=== PATIENT | male | born 1950 | race Caucasian/White ===

== ENCOUNTER 2016-11-24 11:32 | Emergency (ER) | payer OTHER ==
--- NOTE | 2016-11-24 11:58 | EDPHY ---
H & P Stated Complaint: back spasm Time Seen by Provider: 11/24/16 11:45 HPI/ROS: CHIEF COMPLAINT: Back pain and spasm HISTORY OF PRESENT ILLNESS: The patient is a 66 y/o male arriving with his complaining of worsening back spasms and pain onset Saturday, 4 days ago. He has a history of discectomies at C5-C6 and C6-C7 and some mild chronic low back pain. This past Saturday he was stretching after running and noticed stiffness in his lower back. This slowly became more painful with a stronger spasm throughout the week. He has been treating his symptoms with heat, ice, and ibuprofen and noticed improvement by this morning. He felt good enough to walk and was feeling better until he sneezed while sitting in a chair. He immediately "felt like someone shot me" in the center of his low back. Pain is severe and worsened with any movement. He denies radiculopathy, weakness, numbness, or incontinence. He took ibuprofen at 10:00 this morning and received 200mcg IV Fentanyl by EMS en route. REVIEW OF SYSTEMS: Constitutional: No fever, no chills Eyes: No visual changes ENT: No sore throat Respiratory: No cough, no shortness of breath Cardiac: No chest pain Gastrointestinal: No nausea, no vomiting, no abdominal pain Genitourinary: No hematuria, no dysuria Musculoskeletal:see HPI Skin: No rash Neurological: No headache, no numbness, no weakness Psychiatric: No depression Source: Patient - Personal History Current Tetanus Diphtheria and Acellular Pertussis (TDAP): Yes - Medical/Surgical History PMH: PMH includes: 1. Prostate cancer 2. Discectomies at C5-C6 and C6-C7 Hx Asthma: No Hx Chronic Respiratory Disease: No Hx Diabetes: No Hx Cardiac Disease: No Hx Renal Disease: No Hx Cirrhosis: No Hx Alcoholism: No Hx HIV/AIDS: No Hx Splenectomy or Spleen Trauma: No Other PMH: PAC'S AND PVC'S, PROSTATE CANCER, RADICAL PROSTATECTOMY, DOUBLE DISK REPLACEMENT (C5/6 AND 6/7). ENDARTERECTOMY. - Social History Smoking Status: Former smoker Additional Social History: at bedside. - Physical Exam Exam: General Appearance: Alert, appears uncomfortable with any movement Eyes: Pupils equal and round, no conjunctival pallor ENT, Mouth: Mucous membranes moist Neck: Normal inspection Respiratory: Lungs are clear to auscultation Cardiovascular: Regular rate and rhythm Gastrointestinal: Abdomen is soft and non-tender Back: left lumbar paraspinous tenderness Neurological: Alert, oriented x3, cranial nerves II through XII intact, motor 5 /5, including dorsiflexion of the ankle and 1st toe, sensory intact to light touch Skin: Warm and dry Extremities: Negative straight leg raise Psychiatric: Mood and affect normal Constitutional: Initial Vital Signs Temperature (C) 36.9 C 11/24/16 11:32 Heart Rate 67 11/24/16 11:32 Respiratory Rate 16 11/24/16 11:32 Blood Pressure 167/87 H 11/24/16 11:32 O2 Sat (%) 95 11/24/16 11:32 O2 Delivery Mode Room Air O2 (L/minute) 2 Allergies/Adverse Reactions: Penicillins Allergy (Severe, Verified 02/18/16 17:39) Anaphylaxis Home Medications: Medication Instructions Recorded Atorvastatin Calcium 02/18/16 Diclofenac 0.1% [Voltaren 0.1% (*)] 2 drops RTEYE QID #1 opht.btl 02/18/16 Losartan Potassium 02/18/16 Metoprolol Tartrate 02/18/16 Diazepam [Valium 5 MG (*)] 5 mg PO Q6 PRN #10 tab 11/24/16 Hydrocodone/APAP 5/325 [[place] 1 - 2 tab PO Q4H PRN #15 tab 11/24/16 5/325 (*)] Medical Decision Making ED Course/Re-evaluation: Patient's symptoms indicate muscular strain with associated spasm. He does not have radiculopathy, weakness, numbness or incontinence. He does not meet criteria for imaging at this time. Plan for symptom management with 4mg IV morphine, 5mg IV Valium, 30mg IV Toradol, and 4mg IV Zofran. 1338: Reassessed patient. He is sitting up and feels improved. He feels like he will be able to get around at home with home medications. Plan to road test. Able to walk with a steady gait. Safe and stable for discharge Differential Diagnosis: Differential diagnosis for back pain includes muscular pain, herniated disc, epidural abscess, discitis, spine fracture, intra-abdominal causes and urinary tract infection. - Data Points Medications Given: Discontinued Medications Diazepam (Valium Injection) 5 mg IVP EDNOW ONE Stop: 11/24/16 12:05 Last Admin: 11/24/16 12:28 Dose: 5 mg Ketorolac Tromethamine (Toradol) 30 mg IVP EDNOW ONE Stop: 11/24/16 12:04 Last Admin: 11/24/16 12:27 Dose: 30 mg Morphine Sulfate (Morphine) 4 mg IVP EDNOW ONE Stop: 11/24/16 12:04 Last Admin: 11/24/16 12:28 Dose: Not Given Ondansetron HCl (Zofran) 4 mg IVP EDNOW ONE Stop: 11/24/16 12:04 Last Admin: 11/24/16 12:28 Dose: 4 mg Oxycodone/Acetaminophen (Percocet 5/325) 1 tab PO EDNOW ONE Stop: 11/24/16 13:51 Last Admin: 11/24/16 13:55 Dose: 1 tab Departure - Departure Disposition: Home, Routine, Self-Care Clinical Impression: Muscle spasm of back Low back strain Qualifiers: Encounter type: initial encounter Qualified Code(s): S39.012A - Strain of muscle, fascia and tendon of lower back, initial encounter Condition: Good Instructions: Low Back Strain (ED), Muscle Spasm (ED) Additional Instructions: 1. Take [place] as prescribed when needed for pain. 2. Use Valium as prescribed for muscle spasm. 3. Take Zofran if needed for nausea or vomiting, which are common side effects of narcotics. 4. Follow up with your primary care provider in 1-2 weeks for symptoms not improved. 5. Return to the ED for weakness or numbness in your legs or urinary or bowel incontinence. Referrals: Manan Levy MD [Medical Doctor] - As per Instructions Prescriptions: Diazepam [Valium 5 MG (*)] 5 mg PO Q6 PRN #10 tab PRN Reason: muscle spasm Hydrocodone/APAP 5/325 [[place] 5/325 (*)] 1 - 2 tab PO Q4H PRN #15 tab PRN Reason: Pain, Moderate Report Scribed for: Gifty Martinez Report Scribed by: Shanelle Bhatia Date of Report: 11/24/16 Time of Report: 11:58 Physician Review and Approval Statement: 11/24/16 11:58 Portions of this note were transcribed by a medical lab assistant. I personally performed a history, physical exam, medical decision making, and confirmed accuracy of information the transcribed note.
[2016-11-24] MEDS ORDERED: KETOROLAC 30 MG/1 ML SDV IVP ONE (12:03)
[2016-11-24] MEDS ORDERED: ONDANSETRON 4 MG/2 ML VIAL IVP ONE (12:03)
[2016-11-24] MEDS ORDERED: DIAZEPAM 10 MG/2 ML SYR IVP ONE (12:04)
[2016-11-24] MEDS ORDERED: DIAZEPAM 10 MG/2 ML SYR ONE (12:13)
[2016-11-24 13:09] VITALS: RESP 20; TEMP 98.1
[2016-11-24] MEDS ORDERED: OXYCODONE/APAP 5/325 TAB PO ONE (13:50)
[2016-11-24 14:13] VITALS: BP 143/86; PULSE 64; O2SAT 96
== END 2016-11-24 14:13 | disposition home or self-care (01) ==
LOC: EDUNIT#
DX: S39.012A Strain of muscle, fascia and tendon of lower back, initial encounter (principal); M62.830 Muscle spasm of back; Z85.46 Personal history of malignant neoplasm of prostate; Z87.891 Personal history of nicotine dependence; X58.XXXA Exposure to other specified factors, initial encounter
CPT/HCPCS: 96374; 96375; 99284; J1885; J2405

== ENCOUNTER → 2016-12-24 | Outpatient (CLI) | payer OTHER | LOC: BMCIMAGING 10:09 | PROVIDERS: ATTEND Family Medicine | DX: S62.501A Fracture of unspecified phalanx of right thumb, initial encounter for closed fracture (principal); W01.0XXA Fall on same level from slipping, tripping and stumbling without subsequent striking against object, initial encounter ==

== ENCOUNTER → 2017-05-03 | Outpatient (CLI) | payer OTHER | LOC: BMCIMAGING 12:57 | PROVIDERS: ATTEND Internal Medicine | DX: Z13.820 Encounter for screening for osteoporosis (principal); M85.80 Other specified disorders of bone density and structure, unspecified site; I25.10 Atherosclerotic heart disease of native coronary artery without angina pectoris ==

== ENCOUNTER → 2017-10-28 | Outpatient (CLI) | payer OTHER | LOC: BMCIMAGING 12:18 | PROVIDERS: ATTEND Internal Medicine | DX: R05 Cough (principal) ==